=== PATIENT | female | born 1960 | race Caucasian/White ===

== ENCOUNTER 2016-09-06 19:55 | Emergency (ER) | payer MEDICARE, OTHER ==
[2016-09-06 19:56] VITALS: BMI 43.6
--- NOTE | 2016-09-06 20:35 | ED PDOC ---
HPI: General Adult Time Seen by Provider: 09/06/16 20:17 Chief Complaint (Nursing): Shortness Of Breath Chief Complaint (Provider): Sciatica pain, lower abdominal pain, water weight gain x 3 months History Per: Patient History/Exam Limitations: no limitations Onset/Duration Of Symptoms: Days Additional Complaint(s): PT state she has been having lower abdominal pain, bruising, sciatica pain and increased weight gain due to water. PT states she has COPD and has been taking Lasix which makes her more bloated. Pt initially denies SOB and was I asked a second time she said yes not no different than normal. Past Medical History Reviewed: Historical Data, Nursing Documentation, Vital Signs Vital Signs: Last Vital Signs Temp 97.5 F L 09/06/16 20:04 Pulse 77 09/06/16 20:04 Resp 18 09/06/16 20:31 BP 125/77 09/06/16 20:04 Pulse Ox 100 09/06/16 20:38 - Medical History PMH: Anxiety, Arthritis, Asthma, Back Problems (Chronic), Bipolar Disorder, Depression, HTN, Osteoporosis, Seizures Denies: CHF, COPD, Diabetes, Hepatitis, HIV, Hypercholesterolemia, Hypothyroidism, Rheumatoid Arthritis, Sexually Transmitted Disease - Surgical History Surgical History: - Family History Family History: States: No Known Family Hx - Immunization History Hx Tetanus Toxoid Vaccination: Yes Hx Influenza Vaccination: Yes Hx Pneumococcal Vaccination: Yes - Home Medications Home Medications: Ambulatory Orders Medication Instructions Recorded Singulair 10 mg PO HS 05/24/13 Depakote 500 mg PO BID 07/27/13 Citalopram Hydrobromide [Celexa] 20 mg PO DAILY 09/07/15 Rosuvastatin Calcium [Crestor] 10 mg PO HS 09/07/15 Budesonide [Pulmicort Flexhaler] 1 puff INH BID 09/12/15 LORazepam [Ativan] 0.5 mg PO BID 09/12/15 Naproxen 500 mg PO BID #30 tab 07/16/16 Naproxen 500 mg PO BID #10 ect 09/06/16 - Allergies Allergies/Adverse Reactions: Allergies Allergy/AdvReac Type Severity Reaction Status Date / Time No Known Allergies Allergy Verified 09/06/16 20:04 Review of Systems ROS Statement: Except As Marked, All Systems Reviewed And Found Negative Constitutional: Positive for: Other (Weight gain ) Respiratory: Positive for: Shortness of Breath Gastrointestinal: Positive for: Abdominal Pain. Negative for: Nausea, Vomiting , Diarrhea Genitourinary Female: Negative for: Dysuria, Frequency Musculoskeletal: Positive for: Back Pain Physical Exam - Reviewed Nursing Documentation Reviewed: Yes Vital Signs Reviewed: Yes - Physical Exam Appears: Positive for: Well, Non-toxic, No Acute Distress Head Exam: Positive for: ATRAUMATIC, NORMAL INSPECTION, NORMOCEPHALIC Skin: Positive for: Normal Color, Warm, DRY Eye Exam: Positive for: Normal appearance ENT: Positive for: Normal ENT Inspection Neck: Positive for: Normal, Painless ROM Cardiovascular/Chest: Positive for: Regular Rate, Rhythm Respiratory: Positive for: Stridor (Diffuse ). Negative for: Accessory Muscle Use Gastrointestinal/Abdominal: Positive for: Normal Exam, Bowel Sounds, Soft. Negative for: Tenderness Back: Positive for: Normal Inspection Extremity: Positive for: Normal ROM. Negative for: Swelling (No edema ) Neurologic/Psych: Positive for: Alert, Oriented - Laboratory Results Result Diagrams: 09/06/16 21:00 09/06/16 21:00 - ECG O2 Sat by Pulse Oximetry: 100 Disposition - Clinical Impression Clinical Impression: Sciatica, COPD (chronic obstructive pulmonary disease) - Patient ED Disposition Is Patient to be Admitted: No Counseled Patient/Family Regarding: Diagnosis, Need For Followup - Disposition Referrals: [facility] [Outside] Disposition: Routine/Home Disposition Time: 23:11 Condition: GOOD Additional Instructions: Please f/u with PMD. Prescriptions: Naproxen 500 mg PO BID #10 ect Instructions: Sciatica (ED)
[2016-09-06] MEDS ORDERED: Albuterol-Ipratrop 3 mg / 0.5 (3 ml) UD INH STA (20:40)
[2016-09-06] MEDS ORDERED: Albuterol-Ipratrop 3 mg / 0.5 (3 ml) UD ONE (20:53)
[2016-09-06 21:05] LABS: HEMATOCRIT 37.1 % (34.0-47.0); MEAN CELL VOLUME 88.2 fl (81.0-99.0); MEAN CORPUSCULAR HEMOGLOBIN 29.5 pg (27.0-31.0); MEAN CORPUSCULAR HGB CONC 33.4 g/dL (33.0-37.0); RED CELL DISTRIBUTION WIDTH 13.3 % (11.5-14.5); WHITE BLOOD COUNT 6.8 K/uL (4.8-10.8)
[2016-09-06] MEDS ORDERED: Naproxen 500 MG TAB PO STA (21:05)
[2016-09-06 21:12] LABS: RBC URINE 2 /hpf (0-3); URINE BILIRUBIN NEGATIVE (NEGATIVE); URINE BLOOD NEGATIVE (NEGATIVE); URINE COLOR YELLOW (YELLOW); URINE GLUCOSE (UA) NEG (Normal); URINE KETONE NEGATIVE (NEGATIVE); URINE LEUKOCYTE ESTERASE NEG Leu/uL (Negative); URINE PROTEIN NEGATIVE (NEGATIVE); URINE UROBILINOGEN 0.2-1.0 mg/dL (0.2-1.0); WBC URINE 1 /hpf (0-5)
[2016-09-06 21:20] LABS: ALB/GLOB RATIO 1.3 (1.0-2.1); ALKALINE PHOSPHATASE 128 U/L (38-126); ALT/SGPT 36 U/L (9-52); AST/SGOT 27 U/L (14-36); BILIRUBIN,TOTAL 0.4 mg/dl (0.2-1.3); BLOOD UREA NITROGEN 19 mg/dl (7-17); CALCIUM 9.1 mg/dL (8.4-10.2); CARBON DIOXIDE 31 mmol/L (22-30); CHLORIDE 100 mmol/L (98-107); GFR AFRICAN-AMERICAN > 60; GLUCOSE,RANDOM 145 mg/dL (65-105); POTASSIUM 3.5 MMOL/L (3.6-5.0); SODIUM 141 mmol/l (132-148); TOTAL PROTEIN 6.9 G/DL (6.3-8.2)
[2016-09-06 21:35] LABS: PARTIAL THROMBOPLASTIN TIME 25.4 SECONDS (23.3-32.5)
[2016-09-06] MEDS ORDERED: Naproxen 500 MG TAB PO ONE (21:51)
[2016-09-07 01:48] VITALS: BP 131/78; PULSE 79; RESP 17; TEMP 98; O2SAT 99
--- NOTE | 2016-09-07 08:58 | RAD ---
HISTORY: SOB - COPD COMPARISON: 07/29/2015. FINDINGS: LUNGS: No active pulmonary disease. PLEURA: No significant pleural effusion identified, no pneumothorax apparent. CARDIOVASCULAR: No radiographic findings to suggest acute or significant cardiovascular disease. OSSEOUS STRUCTURES: No significant abnormalities. VISUALIZED UPPER ABDOMEN: Normal. OTHER FINDINGS: None. IMPRESSION: No active disease. No significant interval change compared to the prior examination(s).
== END 2016-09-06 23:31 | disposition home or self-care (01) ==
LOC: H.ER 19:55
DX: J44.9 Chronic obstructive pulmonary disease, unspecified (principal); M54.30 Sciatica, unspecified side; F31.9 Bipolar disorder, unspecified; F41.9 Anxiety disorder, unspecified; I10 Essential (primary) hypertension; M81.0 Age-related osteoporosis without current pathological fracture

== ENCOUNTER 2016-11-13 17:52 | Emergency (ER) | payer MEDICARE, OTHER ==
[2016-11-13 17:53] VITALS: BMI 43.6
[2016-11-13 18:07] VITALS: BP 107/66; PULSE 98; RESP 18; TEMP 98.1; O2SAT 99
[2016-11-13] MEDS ORDERED: Sodium Chloride 0.9% 500 ML IV STA (18:18)
[2016-11-13] MEDS ORDERED: Albuterol-Ipratrop 3 mg / 0.5 (3 ml) UD IH STA (18:18)
[2016-11-13] MEDS ORDERED: Albuterol-Ipratrop 3 mg / 0.5 (3 ml) UD INH STA (18:18)
--- NOTE | 2016-11-13 18:25 | ED PDOC ---
HPI: SOB/CHF/COPD Time Seen by Provider: 11/13/16 18:10 Chief Complaint (Nursing): Respiratory Distress Chief Complaint (Provider): Dyspnea History Per: Patient History/Exam Limitations: no limitations Onset/Duration Of Symptoms: Days (Yesterday) Current Symptoms Are (Timing): Still Present Additional Complaint(s): Dyspena, wheezes, chest tightness. Cough, green phlegm. Walking and noted dyspnea today. No fever. No headaches, dizziness. Has leg swelling for 3 months. No pain. Has chronic low back pain, no numbness, tingles, weakness, incontinence or constipation. Past Medical History Vital Signs: Last Vital Signs Temp 98.1 F 11/13/16 18:04 Pulse 98 H 11/13/16 18:04 Resp 18 11/13/16 18:26 BP 107/66 11/13/16 18:04 Pulse Ox 99 11/13/16 18:28 - Medical History PMH: Anxiety, Arthritis, Asthma, Back Problems (Chronic), Bipolar Disorder, Depression, HTN, Osteoporosis, Seizures Denies: CHF, COPD, Diabetes, Hepatitis, HIV, Hypercholesterolemia, Hypothyroidism, Rheumatoid Arthritis, Sexually Transmitted Disease - Surgical History Surgical History: - Family History Family History: States: Unknown Family Hx - Living Arrangements Living Arrangements: With Family - Social History Alcohol: None Drugs: Denies - Immunization History Hx Tetanus Toxoid Vaccination: Yes Hx Influenza Vaccination: Yes Hx Pneumococcal Vaccination: Yes - Home Medications Home Medications: Ambulatory Orders Medication Instructions Recorded Singulair 10 mg PO HS 05/24/13 Depakote 500 mg PO BID 07/27/13 Citalopram Hydrobromide [Celexa] 20 mg PO DAILY 09/07/15 Rosuvastatin Calcium [Crestor] 10 mg PO HS 09/07/15 Budesonide [Pulmicort Flexhaler] 1 puff INH BID 09/12/15 LORazepam [Ativan] 0.5 mg PO BID 09/12/15 Naproxen 500 mg PO BID #30 tab 07/16/16 Naproxen 500 mg PO BID #10 ect 09/06/16 - Allergies Allergies/Adverse Reactions: Allergies Allergy/AdvReac Type Severity Reaction Status Date / Time No Known Allergies Allergy Verified 09/06/16 20:04 Review of Systems ROS Statement: Except As Marked, All Systems Reviewed And Found Negative Cardiovascular: Positive for: Chest Pain (tightness) Respiratory: Positive for: Cough, Shortness of Breath, Sputum, Wheezing Musculoskeletal: Positive for: Back Pain Physical Exam - Reviewed Nursing Documentation Reviewed: Yes Vital Signs Reviewed: Yes - Physical Exam Appears: Positive for: Non-toxic, No Acute Distress Head Exam: Positive for: ATRAUMATIC, NORMAL INSPECTION, NORMOCEPHALIC Skin: Positive for: Normal Color, Warm, DRY Eye Exam: Positive for: EOMI, Normal appearance, PERRL ENT: Positive for: Normal ENT Inspection Neck: Positive for: Normal, Painless ROM Cardiovascular/Chest: Positive for: Regular Rate, Rhythm Respiratory: Positive for: Decreased Breath Sounds, Wheezing (? end expiration bl) Gastrointestinal/Abdominal: Positive for: Normal Exam, Bowel Sounds, Soft. Negative for: Tenderness Back: Positive for: Normal Inspection. Negative for: L CVA Tenderness, R CVA Tenderness Extremity: Positive for: Normal ROM, Pedal Edema (1+ b/l). Negative for: Tenderness Neurologic/Psych: Positive for: Alert, Oriented - ECG ECG: Positive for: Interpreted By Me, Viewed By Me ECG Rhythm: Positive for: Normal QRS, Normal ST Segment, Nonspecific Changes ( same as old) O2 Sat by Pulse Oximetry: 99 - Progress ED Course And Treament: 1828: Stable. AAOx3. Dr. Anderson to take over care. Fu on labs/imaging. Disposition - Clinical Impression Clinical Impression: Acute dyspnea - Patient ED Disposition Is Patient to be Admitted: Transfer of Care - Disposition Disposition: Transfer of Care Disposition Time: 18:29 Condition: FAIR Patient Signed Over To: Alton Anderson
[2016-11-13 18:42] LABS: BASO # 0.1 K/uL (0.0-0.2); BASO % 1.1 % (0.0-2.0); EOS # 0.1 K/uL (0.0-0.7); EOS % 1.6 % (0.0-4.0); HEMOGLOBIN 13.1 g/dL (12.0-16.0); LYMPH # 2.1 K/uL (1.0-4.3); LYMPH % 32.3 % (20.0-40.0); MEAN CELL VOLUME 85.9 fl (81.0-99.0); MEAN CORPUSCULAR HEMOGLOBIN 28.3 pg (27.0-31.0); MEAN CORPUSCULAR HGB CONC 32.9 g/dL (33.0-37.0); MEAN PLATELET VOLUME 9.3 fl (7.2-11.7); MONO # 0.4 K/uL (0.0-0.8); MONO % 6.2 % (0.0-10.0); NEUT # 3.8 K/uL (1.8-7.0); NEUT % 58.8 % (50.0-75.0); NRBC % 0.1 % (0.0-0.0); RBC 4.62 Mil/uL (3.80-5.20); RED CELL DISTRIBUTION WIDTH 13.4 % (11.5-14.5); WHITE BLOOD COUNT 6.4 K/uL (4.8-10.8)
[2016-11-13 18:49] LABS: ABG ALLEN TEST YES; ARTERIAL BLOOD GAS HCO3 27.2 mmol/L (21-28); ARTERIAL BLOOD GAS O2 SAT 99.4 % (95-98); ARTERIAL BLOOD GAS PCO2 43 mm/Hg (35-45); ARTERIAL BLOOD GAS PH 7.42 (7.35-7.45); ARTERIAL BLOOD GAS PO2 82 mm/Hg (80-100); ARTERIAL BLOOD GAS TCO2 29.2 mmol/L (22-28)
--- NOTE | 2016-11-13 18:55 | RAD ---
HISTORY: dyspnea COMPARISON: 09/06/2016 FINDINGS: LUNGS: The lungs are well inflated and clear. PLEURA: No significant pleural effusion identified, no pneumothorax apparent. CARDIOVASCULAR: Normal. OSSEOUS STRUCTURES: No significant abnormalities. VISUALIZED UPPER ABDOMEN: Normal. OTHER FINDINGS: None. IMPRESSION: No active pulmonary disease.
[2016-11-13 19:01] LABS: ALB/GLOB RATIO 1.2 (1.0-2.1); ALBUMIN 4.2 g/dL (3.5-5.0); ALT/SGPT 55 U/L (9-52); AST/SGOT 33 U/L (14-36); BLOOD UREA NITROGEN 12 mg/dl (7-17); CALCIUM 9.5 mg/dL (8.4-10.2); GFR AFRICAN-AMERICAN > 60; GFR NON-AFRICAN AMERICAN > 60
[2016-11-13] MEDS ORDERED: Albuterol-Ipratrop 3 mg / 0.5 (3 ml) UD ONE (19:09)
--- NOTE | 2016-11-13 19:10 | ED PDOC ---
- Laboratory Results Result Diagrams: 11/13/16 18:30 11/13/16 18:30 - ECG O2 Sat by Pulse Oximetry: 99 Medical Decision Making Medical Decision Makin:00 Pt signed out to me by Dr. Dolores MD. Pending labs, re-evaluation, and disposition. 20:21 Labs reviewed, shows no indication of clinically significant abnormalities. Pt was re-evaluated and reports feeling improved after Duoneb treatment. Pt requires no further treatment in the ED and will be discharged routinely with albuterol and medrol. Advised to return to the ED if symptoms persist or worsen. Clincal Impression- Asthma Exacerbation Documented by Mae Bernal, acting as a scribe for Alton Anderson MD. All medical record entries made by the Scribe were at my direction and personally dictated by me. I have reviewed the chart and agree that the record accurately reflects my personal performance of the history, physical exam, medical decision making, and the department course for this patient. I have also personally directed, reviewed, and agree with the discharge instructions and disposition. Disposition - Clinical Impression Clinical Impression: Asthma exacerbation - POA Present On Arrival: None - Disposition Disposition: Routine/Home Disposition Time: 20:21 Condition: STABLE Prescriptions: Albuterol HFA [Ventolin HFA 90 mcg/actuation (8 g)] 1 - 2 puff IH Q6 PRN #1 inhaler PRN Reason: Shortness Of Breath Methylprednisolone [Medrol Dosepak] 4 mg PO ASDIR #1 pkg Instructions: Asthma (ED)
[2016-11-13 19:17] LABS: B-TYPE NATRIURETIC PEPTIDE 40.2 pg/ml (0-900)
--- NOTE | 2016-11-14 12:57 | CARD ---
APPROVED REPORT EKG Measurement Heart [id number] <Conclusion> Sinus tachycardia Possible Left atrial enlargement Borderline ECG
== END 2016-11-13 20:36 | disposition home or self-care (01) ==
LOC: H.ER 17:52
DX: J45.901 Unspecified asthma with (acute) exacerbation (principal); F31.9 Bipolar disorder, unspecified; F41.9 Anxiety disorder, unspecified; I10 Essential (primary) hypertension
CPT/HCPCS: 36600; 71010; 80053; 82803; 83880; 84484; 85025; 93005; 94640; 96374; 99283; J2930; J7040

== ENCOUNTER 2017-08-05 15:06 | Emergency (ER) | payer MEDICARE, OTHER ==
[2017-08-05 15:06] VITALS: BMI 47.5
[2017-08-05 15:18] VITALS: BP 145/90; PULSE 94; RESP 18; TEMP 97.5; O2SAT 99
--- NOTE | 2017-08-05 16:07 | ED PDOC ---
HPI: Chest Pain Time Seen by Provider: 08/05/17 15:15 Chief Complaint (Nursing): Chest Pain Chief Complaint (Provider): Chest Pain History Per: Patient History/Exam Limitations: no limitations Onset/Duration Of Symptoms: Intermittent Episodes (x2 days) Current Symptoms Are (Timing): Still Present Additional Complaint(s): 56 year old female with medical history of anxiety, chronic back pain, asthma and HTN, presents to the emergency department with a complaint of chest pain, back pain and abdominal "hardening" ongoing intermittently for 2 days. She reports associated chills, bilateral eye swelling and dizziness. She denied any nausea, vomiting or diarrhea. Patient has also been taking water pills with no alleviation in pain. PMD: Cleveland Cheema MD Past Medical History Reviewed: Historical Data, Nursing Documentation, Vital Signs Vital Signs: Last Vital Signs Temp 97.5 F L 08/05/17 15:15 Pulse 94 H 08/05/17 15:15 Resp 18 08/05/17 15:15 BP 145/90 08/05/17 15:15 Pulse Ox 99 08/05/17 23:58 - Medical History PMH: Anxiety, Arthritis, Asthma, Back Problems (Chronic), Bipolar Disorder, Depression, HTN, Osteoporosis, Peripheral Edema, Seizures Denies: CHF, Diabetes, Hepatitis, HIV, Hypercholesterolemia, Hypothyroidism, Rheumatoid Arthritis - Surgical History Surgical History: - Family History Family History: States: Unknown Family Hx - Social History Current smoker - smoking cessation education provided: No Ex-Smoker (has not smoked in the last 12 months): No Alcohol: None Drugs: Denies - Immunization History Hx Tetanus Toxoid Vaccination: Yes Hx Influenza Vaccination: Yes Hx Pneumococcal Vaccination: Yes - Home Medications Home Medications: Ambulatory Orders Medication Instructions Recorded Singulair 10 mg PO HS 05/24/13 Depakote 500 mg PO BID 07/27/13 Citalopram Hydrobromide [Celexa] 20 mg PO DAILY 09/07/15 Rosuvastatin Calcium [Crestor] 10 mg PO DAILY 09/07/15 Budesonide [Pulmicort Flexhaler] 1 puff INH BID PRN 09/12/15 Naproxen 500 mg PO BID #30 tab 07/16/16 Albuterol HFA [Ventolin HFA 90 1 - 2 puff IH Q6 PRN #1 inhaler 11/13/16 mcg/actuation (8 g)] Alprazolam [Xanax] 0.5 mg PO TID 02/12/17 Furosemide 40 mg PO DAILY 02/12/17 Multivitamin [Daily Smita] 1 tab PO DAILY 02/12/17 Spironolactone 50 mg PO DAILY 02/12/17 - Allergies Allergies/Adverse Reactions: Allergies Allergy/AdvReac Type Severity Reaction Status Date / Time No Known Allergies Allergy Verified 09/06/16 20:04 Review of Systems ROS Statement: Except As Marked, All Systems Reviewed And Found Negative Constitutional: Positive for: Chills Eyes: Positive for: Other (bilateral swelling) Cardiovascular: Positive for: Chest Pain Gastrointestinal: Positive for: Abdominal Pain (hardness). Negative for: Nausea , Vomiting, Diarrhea Musculoskeletal: Positive for: Back Pain Neurological: Positive for: Dizziness Physical Exam - Reviewed Nursing Documentation Reviewed: Yes Vital Signs Reviewed: Yes - Physical Exam Appears: Positive for: Uncomfortable, In Acute Distress (mild) Head Exam: Positive for: ATRAUMATIC, NORMAL INSPECTION, NORMOCEPHALIC Skin: Positive for: Normal Color Eye Exam: Positive for: EOMI, PERRL, Periorbital swelling ENT: Positive for: Normal ENT Inspection. Negative for: Pharyngeal Erythema Neck: Positive for: Normal Cardiovascular/Chest: Positive for: Regular Rate, Rhythm, Chest Non Tender Respiratory: Positive for: Normal Breath Sounds. Negative for: Wheezing, Respiratory Distress Gastrointestinal/Abdominal: Positive for: Normal Exam, Soft. Negative for: Tenderness Extremity: Positive for: Normal ROM Neurologic/Psych: Positive for: Alert (x3), Oriented - Laboratory Results Result Diagrams: 08/05/17 16:15 08/05/17 16:15 - ECG O2 Sat by Pulse Oximetry: 99 (RA) Pulse Ox Interpretation: Normal Medical Decision Making Medical Decision Making: Initial Impression: Chest pain; Back pain Initial Plan: * CMP * Troponin I * CBC * PTT * PT * CXR Time: 1601 --EKG: NSR at [address] elevation. Time: 16:53 Chest x-ray FINDINGS: LUNGS: No active pulmonary disease. PLEURA: No significant pleural effusion identified. No pneumothorax apparent. CARDIOVASCULAR: No radiographic findings to suggest acute or significant cardiovascular disease. OSSEOUS STRUCTURES: No significant abnormalities. VISUALIZED UPPER ABDOMEN: Normal. OTHER FINDINGS: None. IMPRESSION: No active disease. No significant interval change compared to the prior examination(s). Time: 21:12 Abdomen/Pelvis CT FINDINGS: Lung bases: There is minimal bibasilar atelectatic change or scarring. ABDOMEN: Liver: There is diffuse fatty liver. There is hepatomegaly. Gallbladder and bile ducts: Unremarkable. No calcified stones. No ductal dilation. Pancreas: Unremarkable. No ductal dilation. Spleen: Unremarkable. No splenomegaly. Adrenals: Unremarkable. No mass. Kidneys and ureters: Unremarkable. No obstructing stones. No hydronephrosis. Stomach and bowel: Unremarkable. No obstruction. No mucosal thickening. Appendix: The appendix is unremarkable and seen best on axial image 79 of series 2. PELVIS: Bladder: Unremarkable. No stones. Reproductive: Unremarkable as visualized. ABDOMEN and PELVIS: Intraperitoneal space: Unremarkable. No free air. No significant fluid collection. Bones/joints: There are mild degenerative changes of the spine. No acute fracture. No dislocation. Soft tissues: Unremarkable. Vasculature: There are mild atherosclerotic aortic and iliac artery calcifications. There are calcified phleboliths in the pelvis. No abdominal aortic aneurysm. Lymph nodes: Unremarkable. No enlarged lymph nodes. IMPRESSION: No acute findings -Troponin number 2: negative pt feels better, states the back pain is actually chronic. pt resting comfortably throughout ER stay.tolerated po. Scribe Attestation: Documented by Mikayla Reyes and Harpreet Lux, acting as a scribe for Ajay Fuller MD. Provider Scribe Attestation: All medical record entries made by the Scribe were at my direction and personally dictated by me. I have reviewed the chart and agree that the record accurately reflects my personal performance of the history, physical exam, medical decision making, and the department course for this patient. I have also personally directed, reviewed, and agree with the discharge instructions and disposition. Disposition - Clinical Impression Clinical Impression: Atypical chest pain - Patient ED Disposition Is Patient to be Admitted: No Counseled Patient/Family Regarding: Studies Performed, Diagnosis, Need For Followup - Disposition Referrals: [facility] [Outside] [facility] [Outside] Disposition: Routine/Home Disposition Time: 19:00 Condition: IMPROVED Additional Instructions: follow up with your primary doctor in 1-2 days return to the ED with any worsening or concerning symptoms Instructions: Chest Pain That Is Not Caused by the Heart (DC) Forms: [employer] (Amharic)
[2017-08-05 16:53] LABS: BASO # 0.1 K/uL (0.0-0.2); BASO % 0.7 % (0.0-2.0); EOS # 0.1 K/uL (0.0-0.7); EOS % 1.8 % (0.0-4.0); HEMOGLOBIN 13.9 g/dL (12.0-16.0); LYMPH # 2.4 K/uL (1.0-4.3); LYMPH % 31.9 % (20.0-40.0); MEAN CELL VOLUME 86.6 fl (81.0-99.0); MEAN CORPUSCULAR HEMOGLOBIN 29.6 pg (27.0-31.0); MEAN CORPUSCULAR HGB CONC 34.1 g/dL (33.0-37.0); MEAN PLATELET VOLUME 8.9 fl (7.2-11.7); MONO # 0.5 K/uL (0.0-0.8); MONO % 6.7 % (0.0-10.0); NEUT # 4.5 K/uL (1.8-7.0); NEUT % 58.9 % (50.0-75.0); RBC 4.71 Mil/uL (3.80-5.20); RED CELL DISTRIBUTION WIDTH 13.5 % (11.5-14.5); WHITE BLOOD COUNT 7.7 K/uL (4.8-10.8)
[2017-08-05 17:00] LABS: PARTIAL THROMBOPLASTIN TIME 31.8 Seconds (25.6-37.1); PROTHROMBIN TIME 10.5 Seconds (9.8-13.1)
--- NOTE | 2017-08-05 17:02 | RAD ---
HISTORY: chest pain COMPARISON: 11/13/2016 TECHNIQUE: Chest PA and lateral FINDINGS: LUNGS: No active pulmonary disease. PLEURA: No significant pleural effusion identified. No pneumothorax apparent. CARDIOVASCULAR: No radiographic findings to suggest acute or significant cardiovascular disease. OSSEOUS STRUCTURES: No significant abnormalities. VISUALIZED UPPER ABDOMEN: Normal. OTHER FINDINGS: None. IMPRESSION: No active disease. No significant interval change compared to the prior examination(s).
[2017-08-05 17:04] LABS: ALBUMIN 3.9 g/dL (3.5-5.0); ALT/SGPT 76 U/L (9-52); AST/SGOT 48 U/L (14-36); BLOOD UREA NITROGEN 18 mg/dl (7-17); CALCIUM 9.8 mg/dL (8.4-10.2); GFR AFRICAN-AMERICAN > 60; GFR NON-AFRICAN AMERICAN > 60
[2017-08-05] MEDS ORDERED: Oxycodone/Acetaminophen 5/325 mg Tab PO ONE (20:26)
--- NOTE | 2017-08-06 10:09 | CT ---
PROCEDURE: CT Abdomen and Pelvis without intravenous contrast HISTORY: abd pain COMPARISON: Abdomen ultrasound examination 08/30/2015. TECHNIQUE: Helical CT of the abdomen and pelvis was performed without oral or intravenous contrast as per referring physician request. Contrast Dose: None Radiation dose: Total exam DLP = 1133.20 mGy-cm. This CT exam was performed using one or more of the following dose reduction techniques: Automated exposure control, adjustment of the mA and/or kV according to patient size, and/or use of iterative reconstruction technique. FINDINGS: LOWER THORAX: Punctate calcified granuloma is seen at the right lower lobe with bilateral lung bases otherwise unremarkable appearing. LIVER: Unremarkable. No gross lesion or ductal dilatation. GALLBLADDER AND BILE DUCTS: Unremarkable. PANCREAS: Unremarkable. No gross lesion or ductal dilatation. SPLEEN: Unremarkable. ADRENALS: Unremarkable. No mass. KIDNEYS AND URETERS: No obstructive uropathy, radiodense urolithiasis or significant perinephric reaction appreciated bilaterally. VASCULATURE: Unremarkable. No aortic aneurysm. BOWEL: Unremarkable. No obstruction. No gross mural thickening. APPENDIX: Unremarkable. Normal appendix. PERITONEUM: Unremarkable. No free fluid. No free air. LYMPH NODES: Unremarkable. No enlarged lymph nodes. BLADDER: Unremarkable. REPRODUCTIVE: Unremarkable. BONES: No acute fracture. OTHER FINDINGS: None. IMPRESSION: Nonacute abdomen pelvis CT examination as discussed above. No radiodense urolithiasis, obstructive uropathy or perinephric reaction bilaterally in particular. Concordant preliminary report from [facility], 08/05/2017.
== END 2017-08-05 22:09 | disposition home or self-care (01) ==
LOC: H.ER 15:06
DX: R07.89 Other chest pain (principal); F31.9 Bipolar disorder, unspecified; F41.9 Anxiety disorder, unspecified; I10 Essential (primary) hypertension
CPT/HCPCS: 71046; 74176; 80053; 81025; 84484; 85025; 85610; 85730; 96374; 99283; J1885

== ENCOUNTER 2017-12-11 07:25 | Observation (INO) | payer MEDICARE, OTHER ==
[2017-12-05 14:40] VITALS: BMI 50.3
[2017-12-11] MEDS ORDERED: SULFANILAMIDE (AVC) VAG CREAM VG ONE ×3 (07:40→12:25)
[2017-12-11] MEDS ORDERED: Bupivacaine HCl 0.5% PF (30 ml) Inj ONE (07:40)
[2017-12-11] MEDS ORDERED: Methylene Blue 10 mg/mL(10ml) IV ONE (07:40)
[2017-12-11 08:25] LABS: BASO # 0.1 K/uL (0.0-0.2); BASO % 1.1 % (0.0-2.0); EOS # 0.1 K/uL (0.0-0.7); EOS % 1.9 % (0.0-4.0); HEMOGLOBIN 13.4 g/dL (12.0-16.0); LYMPH # 2.3 K/uL (1.0-4.3); LYMPH % 38.3 % (20.0-40.0); MEAN CELL VOLUME 85.9 fl (81.0-99.0); MEAN CORPUSCULAR HEMOGLOBIN 29.5 pg (27.0-31.0); MEAN CORPUSCULAR HGB CONC 34.3 g/dL (33.0-37.0); MEAN PLATELET VOLUME 9.1 fl (7.2-11.7); MONO # 0.5 K/uL (0.0-0.8); MONO % 8.8 % (0.0-10.0); NEUT % 49.9 % (50.0-75.0); NRBC % 0.2 % (0.0-0.0); RBC 4.56 Mil/uL (3.80-5.20); RED CELL DISTRIBUTION WIDTH 13.6 % (11.5-14.5)
[2017-12-11] MEDS ORDERED: Lactated Ringer's 1,000 ML IV ONE ×2 (08:25→09:00)
[2017-12-11] MEDS ORDERED: Succinylcholine 200 mg/10 ml Inj IV ONE (09:20)
[2017-12-11] MEDS ORDERED: Albuterol HFA 90 mcg/actuation (8 g) ONE (09:20)
[2017-12-11] MEDS ORDERED: ePHEDrine 50 mg/ml Inj ONE (09:20)
[2017-12-11] MEDS ORDERED: Propofol 10 mg/ml Inj (20 ML) ONE (09:20)
[2017-12-11] MEDS ORDERED: Midazolam 2 MG/2 ML VIAL ONE (09:20)
[2017-12-11] MEDS ORDERED: Neostigmine 1:1000 (1 mg/ml) Inj ONE (09:20)
[2017-12-11] MEDS ORDERED: Rocuronium 10 mg/ml (5 ml) ONE ×2 (09:20→13:25)
[2017-12-11] MEDS ORDERED: Sevoflurane - Inhalation Anesthetic Liq (250 ml) ONE (09:20)
[2017-12-11] MEDS ORDERED: HEMOSTATIC MATRIX 10 ML DIS.NEEDLE TOP ONE ×2 (12:00→12:15)
[2017-12-11] MEDS ORDERED: Dexamethasone 4 mg/1 ml ONE (13:25)
[2017-12-11] MEDS ORDERED: DiphenhydrAMINE 50 mg/ml Inj IVP PRN (13:35)
[2017-12-11] MEDS ORDERED: Naloxone 0.4 mg/ml Inj (Adult) IVP PRN (13:38)
[2017-12-11] MEDS ORDERED: HYDROmorphone 1 mg/ml ISec ONE ×5 (13:47→14:21)
[2017-12-11] MEDS: HYDROmorphone 0.5 mg/0.5 ml ISec IVP PRN ×3 (13:47→14:18)
[2017-12-11 14:17] LABS: HEMOGLOBIN 12.5 g/dL (12.0-16.0); MEAN CELL VOLUME 87.7 fl (81.0-99.0); MEAN CORPUSCULAR HEMOGLOBIN 28.8 pg (27.0-31.0); MEAN CORPUSCULAR HGB CONC 32.9 g/dL (33.0-37.0); RBC 4.34 Mil/uL (3.80-5.20); RED CELL DISTRIBUTION WIDTH 13.5 % (11.5-14.5); WHITE BLOOD COUNT 12.6 K/uL (4.8-10.8)
[2017-12-11] MEDS: Lactated Ringer's 1,000 ML IV SCH ×3 (15:39→21:45)
[2017-12-11] MEDS ORDERED: BUDESONIDE INH PRN (17:40)
[2017-12-11] MEDS ORDERED: Albuterol HFA 90 mcg/actuation (8 g) IH PRN (17:40)
[2017-12-11] MEDS: cefOXitin IV 1 gm in Dextrose 1 GM/50 ML BAG IVPB SCH (18:02)
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
[2017-12-11 18:53] LABS: HEMOGLOBIN 12.5 g/dL (12.0-16.0); MEAN CELL VOLUME 86.8 fl (81.0-99.0); MEAN CORPUSCULAR HGB CONC 33.4 g/dL (33.0-37.0); RBC 4.3 Mil/uL (3.80-5.20); RED CELL DISTRIBUTION WIDTH 13.6 % (11.5-14.5); WHITE BLOOD COUNT 11.2 K/uL (4.8-10.8)
--- NOTE | 2017-12-11 19:24 | CP.PCM.PCO ---
Physician Communication Note - Physician Communication Note Physician Communication Note: PATIENT PCP DR. MACIEL. CONSULT TO BE CHANGED TO HIS SERVICE.
[2017-12-11 19:28] LABS: BLOOD UREA NITROGEN 19 mg/dl (7-17); GFR NON-AFRICAN AMERICAN > 60
[2017-12-11] MEDS ORDERED: Sodium Chloride 0.9% 50 ML IV ONE (20:07)
[2017-12-11] MEDS ORDERED: Iodixanol 320 MG/ML 100 ML BOTTLE IV ONE (20:07)
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
[2017-12-12] MEDS ORDERED: Mometasone 110 mcg/puff-30 puff Inh INH PRN (00:07)
[2017-12-12] MEDS: cefOXitin IV 1 gm in Dextrose 1 GM/50 ML BAG IVPB SCH ×2 (01:22→09:01)
[2017-12-12] MEDS: Lactated Ringer's 1,000 ML IV SCH ×2 (05:45→15:58)
[2017-12-12 06:36] LABS: BASO % 0.2 % (0.0-2.0); HEMOGLOBIN 11.4 g/dL (12.0-16.0); LYMPH # 1.4 K/uL (1.0-4.3); MEAN CELL VOLUME 87.9 fl (81.0-99.0); MEAN CORPUSCULAR HEMOGLOBIN 29.3 pg (27.0-31.0); MEAN CORPUSCULAR HGB CONC 33.3 g/dL (33.0-37.0); MEAN PLATELET VOLUME 9.3 fl (7.2-11.7); MONO # 0.8 K/uL (0.0-0.8); MONO % 6.7 % (0.0-10.0); NEUT # 10.4 K/uL (1.8-7.0); NEUT % 82.1 % (50.0-75.0); RBC 3.88 Mil/uL (3.80-5.20); RED CELL DISTRIBUTION WIDTH 13.8 % (11.5-14.5); WHITE BLOOD COUNT 12.6 K/uL (4.8-10.8)
--- NOTE | 2017-12-12 07:41 | CARD ---
APPROVED REPORT Date of service: 12/11/2017 <Conclusion> Sinus tachycardia Possible Left atrial enlargement Nonspecific T wave abnormality Abnormal ECG
[2017-12-12] MEDS ORDERED: DEPAKOTE 500 MG PO SCH (09:00)
[2017-12-12] MEDS: Divalproex 500 mg DR(BID formulation) PO SCH ×2 (09:01→16:57)
--- NOTE | 2017-12-12 09:13 | US ---
Date of service: 12/12/2017 PROCEDURE: Bilateral lower extremity venous duplex Doppler. HISTORY: Tender b/l ext. COMPARISON: None available. TECHNIQUE: Bilateral common femoral, superficial femoral, popliteal and posterior tibial veins were evaluated. Flow was assessed with color Doppler, compressibility, assessment of phasic flow and augmentation response. FINDINGS: COMMON FEMORAL VEIN: Right CFV: Unremarkable. Left CFV: Unremarkable. SUPERFICIAL FEMORAL VEIN: Right SFV: Unremarkable. Left SFV: Unremarkable. POPLITEAL VEIN: Right Popliteal: Unremarkable. Left Popliteal: Unremarkable. POSTERIOR TIBIAL VEIN: Right PTV: Unremarkable. Left PTV: Unremarkable. OTHER FINDINGS: None. IMPRESSION: No evidence of deep venous thrombosis.
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
--- NOTE | 2017-12-12 10:43 | CP.PCM.PN ---
<Stephanie Castano - Last Filed: 12/12/17 12:41> Subjective - Date & Time of Evaluation Date of Evaluation: 12/12/17 Time of Evaluation: 07:10 - Subjective Subjective: Overnight pt was found to be anxious, did not taking any of her home anxiety medications. [place] better after 1x dose of ativan. Pt is seen and examined this AM. States that she is feeling fine. Denies chest pain, dyspnea, n/v/d/c. Endorsing mild abdominal pain/fullness. Pt is ambulating to chair and in the room. Objective - Vital Signs/Intake and Output Vital Signs (last 24 hours): Temp Pulse Resp BP Pulse Ox 98.4 F 72 20 102/69 99 12/12/17 08:17 12/12/17 08:17 12/12/17 08:17 12/12/17 09:00 12/12/17 08:17 - Medications Medications: Current Medications Albuterol (Ventolin Hfa 90 Mcg/Actuation (8 G)) 2 puff IH Q6 PRN PRN Reason: Shortness of Breath Alprazolam (Xanax) 0.5 mg PO TID [facility] Last Admin: 12/12/17 09:07 Dose: 0.5 mg Citalopram Hydrobromide (Celexa) 20 mg PO DAILY [facility] Last Admin: 12/12/17 09:01 Dose: 20 mg Divalproex Sodium (Depakote Dr(*Bid*)) 500 mg PO BID [facility] Last Admin: 12/12/17 09:01 Dose: 500 mg Emollient Ointment (Vaseline Oint) 1 pkt TOP PRN PRN PRN Reason: Dry skin Furosemide (Lasix) 40 mg PO DAILY [facility] Last Admin: 12/12/17 09:00 Dose: 40 mg Hydromorphone HCl (Dilaudid 0.2 Mg/Ml Dog Obedience Instructor) 0 mg IV PRN PRN; Protocol PRN Reason: Pain, moderate (4-7) Last Admin: 12/11/17 15:05 Dose: 0 mg Lactated Ringer's (Lactated Ringer's) 1,000 mls @ 125 mls/hr IV .Q8H [facility] Last Admin: 12/12/17 05:45 Dose: Not Given Mometasone Furoate (Asmanex Twisthaler 110 Mcg) 1 puff INH DAILY PRN PRN Reason: Shortness of Breath Montelukast Sodium (Singulair) 10 mg PO HS [facility] Naloxone HCl (Narcan) 0.1 mg IVP Q2M PRN PRN Reason: Opiate reversal Spironolactone (Aldactone) 50 mg PO DAILY [facility] Last Admin: 12/12/17 09:00 Dose: 50 mg Zolpidem Tartrate (Ambien) 5 mg PO HS PRN PRN Reason: Sleep - Labs Labs: 12/12/17 05:50 12/11/17 18:58 - Constitutional Appears: No Acute Distress, Other (obese) - Head Exam Head Exam: ATRAUMATIC - Eye Exam Eye Exam: EOMI - ENT Exam ENT Exam: Mucous Membranes Moist - Respiratory Exam Respiratory Exam: Clear to Ausculation Bilateral, Wheezes (expiratory wheezing b /l ) - Cardiovascular Exam Cardiovascular Exam: REGULAR RHYTHM, +S1, +S2 - GI/Abdominal Exam GI & Abdominal Exam: Soft, Tenderness, Normal Bowel Sounds - Extremities Exam Extremities Exam: absent: Calf Tenderness, Pedal Edema - Neurological Exam Neurological Exam: Alert, Awake Assessment and Plan - Assessment and Plan (Free Text) Assessment: Assessment/Plan: 57 YO F with PMH of anxiety, asthma, HTN, Uterine fibroids, s/p Robotic hysterectomy with Left oopherectomy and b/l salphingectomy POD1; medicine was consulted for post-op tachycardia. Tachycardia -resolved -likely 2/2 to pain and anxiety -restarted her home meds -r/o PE and ACS; unlikely -EKG: Sinus tachycardia, no acute ischemic changes noted -CTA neg -b/l lower ext u/s neg -Pharmacologic stress test 09/2017: WNL -Post op CBC stable -C/W pain control with LEADERSHIP RECRUITER pump -trop x 1 neg -Cardio consulted; cleared per cardiology for discharge Anxiety -Xanex .5 mg TID PRN -restart psychotropic meds -ativan 0.5 prn if persistent DVT prophylaxis -SCD for now, will speak to surgical team regarding Lovenox on POD 1 Dispo Discussed case with cardiology and PMD, pt is cleared for d/c home. <Rios Evans - Last Filed: 12/16/17 06:43> Objective - Vital Signs/Intake and Output Vital Signs (last 24 hours): Temp Pulse Resp BP Pulse Ox 98.1 F 84 19 111/73 96 12/13/17 09:00 12/13/17 09:00 12/13/17 09:00 12/13/17 09:00 12/13/17 09:00 - Labs Labs: 12/12/17 05:50 12/13/17 05:35 Attending/Attestation - Attestation I have personally seen and examined this patient.: Yes I have fully participated in the care of the patient.: Yes I have reviewed all pertinent clinical information, including history, physical exam and plan: Yes
--- NOTE | 2017-12-12 10:50 | CT ---
Date of service: 12/11/2017 PROCEDURE: CT Chest with contrast (Pulmonary Angiogram) HISTORY: TACHY, HYPOXIA COMPARISON: None available. TECHNIQUE: Axial computed tomography images were obtained of the chest in the pulmonary arterial phase of enhancement. Coronal and sagittal reformatted images were created and reviewed. Maximum intensity projection (MIP) reconstructed images in the following planes: Axial only. Intravenous contrast dose: 70 cc Visipaque 320. Mean Hounsfield unit values in the main pulmonary artery: 164.04. Radiation dose: Total exam DLP = 356.28 mGy-cm. This CT exam was performed using one or more of the following dose reduction techniques: Automated exposure control, adjustment of the mA and/or kV according to patient size, and/or use of iterative reconstruction technique. FINDINGS: PULMONARY ARTERIES: Unremarkable. No pulmonary embolism. Dilated main pulmonary artery 3.7 cm consistent with pulmonary arterial hypertension. AORTA: No acute findings. No thoracic aortic aneurysm. LUNGS: Linear scarring at the lung bases. . No nodule, mass or pulmonary consolidation. PLEURAL SPACES: Unremarkable. No effusion or pneumothorax. HEART: Unremarkable. No cardiomegaly. No significant pericardial effusion. LYMPH NODES: No lymphadenopathy. BONES, CHEST WALL: Unremarkable. No fracture or destructive lesion OTHER FINDINGS: Unremarkable. IMPRESSION: Unremarkable CT pulmonary angiogram. No pulmonary embolus.Limitations of the current examination: Qualitative and quantitative assessment limits sensitivity of this study. Subsegmental pulmonary emboli are not seen, the quality of the study at this level and beyond is nondiagnostic. Additional benign and/or incidental findings described above. Concordant results (preliminary interpretation) provided by [facility]. Procedure Completed: 21:41. Preliminary ([facility]) Report: Dictated and Authenticated: 22:14. Final Interpretation: 10:48. December 12, 2017.
[2017-12-12] MEDS: Petrolatum UD PAK TOP PRN (12:51)
[2017-12-12] MEDS: Oxycodone/Acetaminophen 5/325 mg Tab PO PRN ×2 (13:06→21:47)
[2017-12-12] MEDS ORDERED: SINGULAIR 10 MG PO SCH (22:00)
[2017-12-13 00:35] VITALS: RESP 19
[2017-12-13] MEDS: Oxycodone/Acetaminophen 5/325 mg Tab PO PRN (06:18)
[2017-12-13 06:52] LABS: BLOOD UREA NITROGEN 12 mg/dl (7-17); GFR NON-AFRICAN AMERICAN > 60
[2017-12-13 06:53] LABS: CALCIUM 9.1 mg/dL (8.4-10.2)
[2017-12-13 07:42] VITALS: BP 111/73; PULSE 84; TEMP 98.1; O2SAT 96
[2017-12-13] MEDS: Petrolatum UD PAK TOP PRN (08:31)
[2017-12-13] MEDS: Divalproex 500 mg DR(BID formulation) PO SCH (08:31)
--- NOTE | 2017-12-13 09:49 | CP.PCM.PN ---
<Stephanie Castano - Last Filed: 12/13/17 13:42> Subjective - Date & Time of Evaluation Date of Evaluation: 12/13/17 Time of Evaluation: 07:15 - Subjective Subjective: No acute overnight events. Pt states that she is feeling well this AM, was able to sleep last night. No BM this AM, pt ambulatory, good PO intake. Endorsing abdominal pain but well controlled with PO meds. Remains without fever. Objective - Vital Signs/Intake and Output Vital Signs (last 24 hours): Temp Pulse Resp BP Pulse Ox 98.1 F 84 19 111/73 96 12/13/17 07:42 12/13/17 07:42 12/13/17 07:42 12/13/17 07:42 12/13/17 07:42 - Medications Medications: Current Medications Albuterol (Ventolin Hfa 90 Mcg/Actuation (8 G)) 2 puff IH Q6 PRN PRN Reason: Shortness of Breath Alprazolam (Xanax) 0.5 mg PO TID [facility] Last Admin: 12/13/17 08:29 Dose: 0.5 mg Citalopram Hydrobromide (Celexa) 20 mg PO DAILY [facility] Last Admin: 12/13/17 08:31 Dose: 20 mg Divalproex Sodium (Depakote Dr(*Bid*)) 500 mg PO BID [facility] Last Admin: 12/13/17 08:31 Dose: 500 mg Docusate Sodium (Colace) 100 mg PO DAILY [facility] Last Admin: 12/13/17 08:29 Dose: 100 mg Emollient Ointment (Vaseline Oint) 1 pkt TOP PRN PRN PRN Reason: Dry skin Last Admin: 12/13/17 08:31 Dose: 1 pkt Lactated Ringer's (Lactated Ringer's) 1,000 mls @ 125 mls/hr IV .Q8H [facility] Last Admin: 12/12/17 15:58 Dose: Not Given Mometasone Furoate (Asmanex Twisthaler 110 Mcg) 1 puff INH DAILY PRN PRN Reason: Shortness of Breath Montelukast Sodium (Singulair) 10 mg PO HS [facility] Last Admin: 12/12/17 21:18 Dose: 10 mg Naloxone HCl (Narcan) 0.1 mg IVP Q2M PRN PRN Reason: Opiate reversal Oxycodone/Acetaminophen (Percocet 5/325 Mg Tab) 1 tab PO Q6 PRN PRN Reason: Pain, Mild (1-3) Stop: 12/15/17 11:07 Last Admin: 12/13/17 06:18 Dose: 1 tab Sennosides (Senokot Tab) 8.6 mg PO HS [facility] Last Admin: 12/12/17 21:18 Dose: 8.6 mg Spironolactone (Aldactone) 50 mg PO DAILY [facility] Last Admin: 12/13/17 08:31 Dose: 50 mg Zolpidem Tartrate (Ambien) 5 mg PO HS PRN PRN Reason: Sleep Last Admin: 12/12/17 22:15 Dose: 5 mg - Labs Labs: 12/12/17 05:50 12/13/17 05:35 - Constitutional Appears: No Acute Distress - Head Exam Head Exam: ATRAUMATIC - ENT Exam ENT Exam: Mucous Membranes Moist - Respiratory Exam Respiratory Exam: Wheezes (b/l mild), NORMAL BREATHING PATTERN - Cardiovascular Exam Cardiovascular Exam: REGULAR RHYTHM, +S1, +S2 - GI/Abdominal Exam GI & Abdominal Exam: Soft, Normal Bowel Sounds. absent: Tenderness - Neurological Exam Neurological Exam: Alert, Awake - Psychiatric Exam Psychiatric exam: Normal Mood Assessment and Plan - Assessment and Plan (Free Text) Assessment: Assessment/Plan: 57 YO F with PMH of anxiety, asthma, HTN, Uterine fibroids, s/p Robotic hysterectomy with Left oopherectomy and b/l salphingectomy POD2; medicine was consulted for post-op tachycardia. Tachycardia -resolved -likely 2/2 to pain and anxiety -restarted her home meds -r/o PE and ACS; unlikely -EKG: Sinus tachycardia, no acute ischemic changes noted -CTA neg -b/l lower ext u/s neg -Pharmacologic stress test 09/2017: WNL -Post op CBC stable -C/W pain control with PO pain meds -trop x 1 neg -Cardio consulted; cleared per cardiology for discharge Anxiety/Insomnia -Xanex .5 mg TID PRN -cont Ambian HS -restart psychotropic meds -ativan 0.5 prn if persistent DVT prophylaxis -SCD for now, will speak to surgical team regarding Lovenox on POD 2 Pt for d/c today per primary team. Please follow up Dr. Cheema within 1 week <Cleveland Cheema - Last Filed: 12/16/17 06:53> Objective - Vital Signs/Intake and Output Vital Signs (last 24 hours): Temp Pulse Resp BP Pulse Ox 98.1 F 84 19 111/73 96 12/13/17 09:00 12/13/17 09:00 12/13/17 09:00 12/13/17 09:00 12/13/17 09:00 - Labs Labs: 12/12/17 05:50 12/13/17 05:35 Attending/Attestation - Attestation I have personally seen and examined this patient.: Yes I have fully participated in the care of the patient.: Yes I have reviewed all pertinent clinical information, including history, physical exam and plan: Yes
--- NOTE | 2017-12-13 09:53 | CP.PCM.PN ---
Subjective - Date & Time of Evaluation Date of Evaluation: 11/12/17 Time of Evaluation: 08:30 - Subjective Subjective: NO CHEST PAIN OR SOB Objective - Vital Signs/Intake and Output Vital Signs (last 24 hours): Temp Pulse Resp BP Pulse Ox 98.1 F 84 19 111/73 96 12/13/17 07:42 12/13/17 07:42 12/13/17 07:42 12/13/17 07:42 12/13/17 07:42 - Medications Medications: Current Medications Albuterol (Ventolin Hfa 90 Mcg/Actuation (8 G)) 2 puff IH Q6 PRN PRN Reason: Shortness of Breath Alprazolam (Xanax) 0.5 mg PO TID [facility] Last Admin: 12/13/17 08:29 Dose: 0.5 mg Citalopram Hydrobromide (Celexa) 20 mg PO DAILY [facility] Last Admin: 12/13/17 08:31 Dose: 20 mg Divalproex Sodium (Depakote Dr(*Bid*)) 500 mg PO BID [facility] Last Admin: 12/13/17 08:31 Dose: 500 mg Docusate Sodium (Colace) 100 mg PO DAILY [facility] Last Admin: 12/13/17 08:29 Dose: 100 mg Emollient Ointment (Vaseline Oint) 1 pkt TOP PRN PRN PRN Reason: Dry skin Last Admin: 12/13/17 08:31 Dose: 1 pkt Lactated Ringer's (Lactated Ringer's) 1,000 mls @ 125 mls/hr IV .Q8H [facility] Last Admin: 12/12/17 15:58 Dose: Not Given Mometasone Furoate (Asmanex Twisthaler 110 Mcg) 1 puff INH DAILY PRN PRN Reason: Shortness of Breath Montelukast Sodium (Singulair) 10 mg PO HS [facility] Last Admin: 12/12/17 21:18 Dose: 10 mg Naloxone HCl (Narcan) 0.1 mg IVP Q2M PRN PRN Reason: Opiate reversal Oxycodone/Acetaminophen (Percocet 5/325 Mg Tab) 1 tab PO Q6 PRN PRN Reason: Pain, Mild (1-3) Stop: 12/15/17 11:07 Last Admin: 12/13/17 06:18 Dose: 1 tab Sennosides (Senokot Tab) 8.6 mg PO HS [facility] Last Admin: 12/12/17 21:18 Dose: 8.6 mg Spironolactone (Aldactone) 50 mg PO DAILY [facility] Last Admin: 12/13/17 08:31 Dose: 50 mg Zolpidem Tartrate (Ambien) 5 mg PO HS PRN PRN Reason: Sleep Last Admin: 12/12/17 22:15 Dose: 5 mg - Labs Labs: 12/12/17 05:50 12/13/17 05:35 - Respiratory Exam Respiratory Exam: Clear to Ausculation Bilateral - Cardiovascular Exam Cardiovascular Exam: REGULAR RHYTHM, +S1, +S2 Assessment and Plan - Assessment and Plan (Free Text) Assessment: S/P HYSTERECTOMY 12/11/17 HYPERTENSION HISTORY ANXIETY/DEPRESSION ASTHMA Plan: FOR DISCHARGE TODAY
--- NOTE | 2017-12-25 15:13 | OP ---
PROCEDURE DATE: 12/11/2017 PREOPERATIVE DIAGNOSES: This is a 57-year-old female with multiple adhesions, postmenopausal bleeding,chronic pelvic pain POSTOPERATIVE DIAGNOSES: Same as above PROCEDURE: Robotic hysterectomy, left salpingectomy, lysis of adhesion and cystoscopy. SURGEON: Destiney Ruby MD. DOCUMENTATION ENGINEER: Dr. Rodriguez. Dr. Covington. ANESTHESIOLOGIST: Dr. Yarely Hein TYPE OF ANESTHESIA: General. FINDINGS: 8cm with multiple adhesions, lysis of adhesions performed. COMPLICATION: None ESTIMATED BLOOD LOSS: Approximately 120 cc MANDO USED: UO 300CC IV FLUID: URINE OUTPUT AT THE END OF THE PROCEDURE: ____ mL. SPECIMEN: Cervix, Uterus, left ovaries DESCRIPTION OF PROCEDURE: The patient was informed of the risk factor, benefits and alternative of procedure. Risks have included infection, bleeding, damage to surrounding organs or tissue, complication from anesthesia and probable . She was also made well aware that the chronic pelvic pain can reoccur due to the adhesion. An informed consent was obtained. Once the informed consent was obtained, she was then taken to the operating room and given general anesthesia which was found to be adequate. The patient was then prepped and draped in a dorsal supine position in a standard fashion.A weighted speculum was placed into the vagina. The cervix was then grasped with single-tooth tenaculum, and it was sounded to approximately 18 cm. In that particular instant, the cervix was dilated with Hanks dilators. The VCare apparatus was passed into the uterus for a uterine manipulation during a planned operative procedure. Once that was in place, all instruments were removed from the vagina. Attention was then turned to the abdomen where a supraumbilical incision was made with a knife and Veress needle was applied into the peritoneal cavity, and CO2 gas was insufflated for creating an adequate intraperitoneal bubble. Then the size #8 trocar was followed by the scope into the peritoneal cavity under direct visualization, the bakery assistant ports and the arms 1, 2 and 3 of the robot were passed under direct visualization. The ovaries were identified. There were multiple adhesions. Lysis of adhesions were then performed with a PK. With adequate mobilization, it was then noted that the infundibular ligament on the left side was identified. The broad ligament was then entered over the medial border of the psoas muscle. The defect was then created in the posterior broad ligament over the course of the uterus. Under direct visualization, the infundibular ligament was grasped with a bipolar forceps, dissected and incision with a hot shield. The procedure was then repeated on the other side, so the broad ligament was then entered and a defect was created in the posterior broad ligament. In that particular instant, it was noted to leave her right ovary which looks normal . The pedicles were then dissected using the bipolar forceps, and in thatparticular instant, the uterine vessels were then skeletonized and a PK was utilized. Excellent hemostasis was noted. The vesicouterine peritoneumwas identified and the bladder was mobilized. The VCare was visualized protruding to the underlying vagina. The uterine vessels were then grasped and the bipolar forceps dissected, incision carried down to the VCare as the cardinal ligaments were serially transected with a Bovie cautery. Unilateral hot ellis were utilized. Upon adequate mobilization of the vascular pedicle, the vaginal cuff was entered anteriorly. The groove of the VCare was identified. The cervix was circumferential with careful attention paid to the standing with the groove of the VCare. The specimen was then removed from its attachment and taken out through the vagina. The vaginal cuff was then reapproximated using interrupted [id number] sutures of #1 Vicryl using laparoscopic suturing technique. In that particular instant, the abdomen was then irrigated with normal saline where the vascular pedicle was for hemostasis, which was assured. Closure was noted to be excellent. So in that particular instant, FloSeal was applied where the cuff was as well as Interceed and the ports were then removed and closed. The skin was closed with 4-0 Monocryl and Steri-Strips were applied to the skin. So then attention was then turned to the patient's vagina. In that particular instant, the Bell catheter was then removed. A 70-degree cystoscopy was then performed in which the dome of the bladder was identified and bilateral ureters were patent. Upon completion of the cystoscopy, confirming that the ureteral jets were patent and there was no injury, A Bell catheter was then placed as well as vaginally packing. Instruments and lap count were correct x2. The patient was then taken to recovery room in stable condition and instructed to follow up in the office in 1 week. MTDD
--- NOTE | 2017-12-26 06:07 | OP ---
Copied To: Blas Rodriguez MD Attending MD: Blas Rodriguez MD PROCEDURE DATE: 12/11/2017 I was the dental hygiene administrative assistant in the operation. I help create exposure, I was helpful in obtaining hemostasis, I was helpful in extraction of the specimen and was assisting in closure of the patient. The rest of the operative report would be dictated by Dr. Destiney Ruby. That concludes my role in the care of the patient. Blas Rodriguez MD
== END 2017-12-13 14:34 | disposition home or self-care (01) ==
LOC: H.OPSURG 07:25 → H.MEDSURG1 12:17
PROVIDERS: ADMIT Obstetrics & Gynecology; ATTEND Obstetrics & Gynecology
DX: N88.8 Other specified noninflammatory disorders of cervix uteri (principal); N83.292 Other ovarian cyst, left side; N83.312 Acquired atrophy of left ovary; N73.6 Female pelvic peritoneal adhesions (postinfective); N95.0 Postmenopausal bleeding; R00.0 Tachycardia, unspecified; G89.29 Other chronic pain; M41.9 Scoliosis, unspecified; J45.909 Unspecified asthma, uncomplicated; M81.0 Age-related osteoporosis without current pathological fracture; I10 Essential (primary) hypertension; H54.8 Legal blindness, as defined in USA; E78.00 Pure hypercholesterolemia, unspecified; F20.9 Schizophrenia, unspecified; F41.9 Anxiety disorder, unspecified
CPT/HCPCS: 36415; 58570; 71275; 80048; 80164; 83735; 84100; 84443; 84484; 85025; 85027; 86850; 86900; 88305; 93005; 93970; C1729; C2615; G0378; J0131; J0330; J0690; J0694; J1100; J1170; J1885; J2001; J2060; J2250; J2704; J2710; J3010; J7030; J7120; Q9967; S2900

== ENCOUNTER 2018-04-23 13:47 | Observation (INO) | payer MEDICARE, MEDICAID ==
[2018-04-23 13:48] VITALS: BMI 50.3
[2018-04-23] MEDS ORDERED: Albuterol-Ipratrop 3 mg / 0.5 (3 ml) UD INH STA ×4 (15:36→18:29)
[2018-04-23] MEDS ORDERED: Albuterol-Ipratrop 3 mg / 0.5 (3 ml) UD ONE ×2 (15:49→16:21)
--- NOTE | 2018-04-23 15:57 | RAD ---
Date of service: 04/23/2018 HISTORY: Evaluate for pneumonia COMPARISON: 12/06/2017. TECHNIQUE: Chest PA and lateral FINDINGS: LINES AND TUBES: None. LUNG AND PLEURA: The lungs are well inflated and clear. No pleural effusion or pneumothorax. HEART AND MEDIASTINUM: The heart is not enlarged. No aortic atherosclerotic calcification present. The hilar and mediastinal contours are within normal limits. SKELETAL STRUCTURES: The bony structures are within normal limits for the patient's age. VISUALIZED UPPER ABDOMEN: Normal. OTHER FINDINGS: None. IMPRESSION: No active pulmonary disease.
[2018-04-23 16:13] LABS: BASO % 0.7 % (0.0-2.0); EOS # 0.1 K/uL (0.0-0.7); EOS % 2.2 % (0.0-4.0); HEMOGLOBIN 13.8 g/dL (12.0-16.0); LYMPH # 1.9 K/uL (1.0-4.3); LYMPH % 39.7 % (20.0-40.0); MEAN CELL VOLUME 86.6 fl (81.0-99.0); MEAN CORPUSCULAR HEMOGLOBIN 28.5 pg (27.0-31.0); MEAN CORPUSCULAR HGB CONC 32.9 g/dL (33.0-37.0); MEAN PLATELET VOLUME 9.5 fl (7.2-11.7); MONO # 0.4 K/uL (0.0-0.8); MONO % 8.4 % (0.0-10.0); NEUT # 2.4 K/uL (1.8-7.0); NRBC % 0.1 % (0.0-0.0); RBC 4.86 Mil/uL (3.80-5.20); RED CELL DISTRIBUTION WIDTH 13.6 % (11.5-14.5); WHITE BLOOD COUNT 4.9 K/uL (4.8-10.8)
[2018-04-23 16:22] LABS: ALB/GLOB RATIO 1.1 (1.0-2.1); ALBUMIN 3.9 g/dL (3.5-5.0); ALT/SGPT 38 U/L (9-52); AST/SGOT 30 U/L (14-36); BLOOD UREA NITROGEN 19 mg/dl (7-17); CALCIUM 9.6 mg/dL (8.4-10.2); GFR NON-AFRICAN AMERICAN > 60
[2018-04-23] MEDS ORDERED: Promethazine/Cod 6.25mg-10mg/5ml Syr UD PO STA (18:38)
[2018-04-23] MEDS ORDERED: Promethazine/Cod 6.25mg-10mg/5ml Syr UD ONE (18:54)
--- NOTE | 2018-04-23 19:48 | ED PDOC ---
HPI: SOB/CHF/COPD Time Seen by Provider: 04/23/18 14:52 Chief Complaint (Nursing): Shortness Of Breath Chief Complaint (Provider): Wheezing, SOB History Per: Patient History/Exam Limitations: no limitations Onset/Duration Of Symptoms: Days Current Symptoms Are (Timing): Still Present Quality: Sharp (With cough ) Associated Symptoms: Chest Pain (When coughing ). denies: Fever, Chills, Sweating, Bloody Cough, Productive Cough, Heart Racing, Ankle/Leg Swelling, Dizziness, Light-headedness, Anxiety, Tingling In Hands Or Face Additional Complaint(s): 57 yo female with history of asthma, COPD, seizure disorder and HTN presents for evaluation of chest pain, wheezing and coughing. PT states she was told to come to ER by Dr. House. Pt reports chest pain central and sharp, only when coughing. Pt has used her albuterol nebulizer today. No fever/chills. Past Medical History Reviewed: Historical Data, Nursing Documentation, Vital Signs Vital Signs: Last Vital Signs Temp 98.4 F 04/23/18 19:44 Pulse 91 H 04/23/18 19:44 Resp 22 04/23/18 19:44 BP 116/69 04/23/18 19:44 Pulse Ox 94 L 04/23/18 19:44 - Medical History PMH: Anxiety, Arthritis (RA), Asthma, Back Problems (Chronic), Bipolar Disorder, COPD, Depression, HTN, Hypercholesterolemia, Osteoporosis, Peripheral Edema, Seizures Denies: CHF, Diabetes, Hepatitis, HIV, Hypothyroidism, Chronic Kidney Dis ease, Rheumatoid Arthritis - Surgical History Surgical History: - Family History Family History: States: Unknown Family Hx - Immunization History Hx Tetanus Toxoid Vaccination: No Hx Influenza Vaccination: Yes Hx Pneumococcal Vaccination: No - Home Medications Home Medications: Ambulatory Orders Medication Instructions Recorded Singulair 10 mg PO HS 05/24/13 Depakote 500 mg PO BID 07/27/13 Citalopram Hydrobromide [Celexa] 20 mg PO DAILY 09/07/15 Albuterol HFA [Ventolin HFA 90 1 - 2 puff IH Q6 PRN #1 inhaler 11/13/16 mcg/actuation (8 g)] Alprazolam [Xanax] 0.5 mg PO TID 02/12/17 Furosemide 40 mg PO DAILY 02/12/17 Multivitamin [Daily Smita] 1 tab PO DAILY 02/12/17 Spironolactone 50 mg PO DAILY 02/12/17 Zolpidem [Ambien] 10 mg PO HS 12/09/17 Pantoprazole Sodium [Protonix] 40 mg PO DAILY #15 ect 03/18/18 - Allergies Allergies/Adverse Reactions: Allergies Allergy/AdvReac Type Severity Reaction Status Date / Time advair Allergy Intermediate SWELLING Uncoded 04/23/18 13:53 spiriva Allergy Intermediate SWELLING Uncoded 04/23/18 13:53 Review of Systems ROS Statement: Except As Marked, All Systems Reviewed And Found Negative Constitutional: Negative for: Fever, Chills Cardiovascular: Positive for: Chest Pain. Negative for: Palpitations, Orthopnea Respiratory: Positive for: Cough, Shortness of Breath. Negative for: SOB with Exertion, Pleuritic Pain, Sputum Gastrointestinal: Negative for: Nausea, Vomiting, Abdominal Pain, Diarrhea Physical Exam - Reviewed Nursing Documentation Reviewed: Yes Vital Signs Reviewed: Yes - Physical Exam Appears: Positive for: Well, Non-toxic, No Acute Distress Head Exam: Positive for: ATRAUMATIC, NORMAL INSPECTION, NORMOCEPHALIC Skin: Positive for: Normal Color, Warm, DRY Eye Exam: Positive for: Normal appearance ENT: Positive for: Normal ENT Inspection Neck: Positive for: Normal, Painless ROM Cardiovascular/Chest: Positive for: Regular Rate, Rhythm Respiratory: Positive for: Wheezing. Negative for: Accessory Muscle Use, Respiratory Distress Back: Positive for: Normal Inspection Extremity: Positive for: Normal ROM Neurologic/Psych: Positive for: Alert, Oriented - Laboratory Results Result Diagrams: 04/24/18 05:52 04/24/18 05:52 - ECG O2 Sat by Pulse Oximetry: 94 Pulse Ox Interpretation: Abnormal Medical Decision Making Medical Decision Makin - Continued wheezing, Oxygen saturation 89-90% on RA. Discussed Observation with Dr. Núñez. Disposition - Clinical Impression Clinical Impression: Hypoxia, Asthma exacerbation - Patient ED Disposition Is Patient to be Admitted: Yes - Disposition Disposition Time: 20:19 Condition: GOOD
[2018-04-23] MEDS ORDERED: Magnesium Sulfate 1 gm in D5W 1 GM/100 ML BAG IVPB ONE (19:50)
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
[2018-04-23] MEDS ORDERED: BUDESONIDE INH PRN (21:03)
[2018-04-23] MEDS ORDERED: Albuterol-Ipratrop 3 mg / 0.5 (3 ml) UD INH PRN (21:14)
[2018-04-23] MEDS ORDERED: methylPREDNISolone 60 MG in Sodium Chloride 0.9% 50 ML IV SCH (21:15)
[2018-04-23] MEDS: guaiFENesin-DM 600-30 mg ER Tab PO SCH (21:38)
[2018-04-23] MEDS ORDERED: Albuterol-Ipratrop 3 mg / 0.5 (3 ml) UD INH SCH (22:00)
[2018-04-23] MEDS: Albuterol-Ipratrop 3 mg / 0.5 (3 ml) UD INH SCH (23:14)
[2018-04-24] MEDS: Albuterol-Ipratrop 3 mg / 0.5 (3 ml) UD INH SCH ×5 (04:07→19:32)
[2018-04-24] MEDS ORDERED: Pneumococcal 23-Valent Vaccine IM ONE (05:46)
[2018-04-24 06:18] LABS: BASO % 0.5 % (0.0-2.0); HEMOGLOBIN 13.3 g/dL (12.0-16.0); LYMPH # 0.5 K/uL (1.0-4.3); LYMPH % 6.6 % (20.0-40.0); MEAN CELL VOLUME 87.2 fl (81.0-99.0); MEAN CORPUSCULAR HEMOGLOBIN 28.6 pg (27.0-31.0); MEAN CORPUSCULAR HGB CONC 32.8 g/dL (33.0-37.0); MEAN PLATELET VOLUME 9.2 fl (7.2-11.7); MONO # 0.2 K/uL (0.0-0.8); MONO % 2.4 % (0.0-10.0); NEUT # 6.7 K/uL (1.8-7.0); NEUT % 90.5 % (50.0-75.0); PLATELET COUNT 239 K/uL (130-400); RBC 4.65 Mil/uL (3.80-5.20); WHITE BLOOD COUNT 7.4 K/uL (4.8-10.8)
[2018-04-24 06:53] LABS: ALB/GLOB RATIO 1.1 (1.0-2.1); ALBUMIN 3.9 g/dL (3.5-5.0); ALT/SGPT 29 U/L (9-52); AST/SGOT 28 U/L (14-36); BLOOD UREA NITROGEN 19 mg/dl (7-17); CALCIUM 9.5 mg/dL (8.4-10.2); GFR NON-AFRICAN AMERICAN > 60
[2018-04-24 08:31] LABS: BANDS 3 % (0-2); LYMPHOCYTE 6 % (20-50); MONOCYTE 1 % (0-10); NEUTROPHIL 89 % (42-75); PLATELET ESTIMATE NORMAL (NORMAL); REACTIVE LYMPHOCYTES 1 % (0-0); TOTAL CELLS COUNTED 100
[2018-04-24] MEDS: guaiFENesin-DM 600-30 mg ER Tab PO SCH ×2 (08:31→18:15)
[2018-04-24] MEDS: Pantoprazole 40 mg EC Tab PO SCH (08:31)
[2018-04-24 08:32] LABS: LARGE PLATELETS PRESENT
[2018-04-24] MEDS: Enoxaparin 40 mg Syringe SC SCH (08:32)
[2018-04-24] MEDS: Divalproex 500 mg DR(BID formulation) PO SCH ×2 (08:32→18:15)
[2018-04-24] MEDS ORDERED: Sodium Chloride 3% for Inhalation 4 ML VIAL.NEB IH PRN (08:33)
--- NOTE | 2018-04-24 09:31 | CP.PCM.PN ---
<Clifton Redmond - Last Filed: 04/24/18 15:29> Subjective - Date & Time of Evaluation Date of Evaluation: 04/24/18 Time of Evaluation: 09:28 - Subjective Subjective: 57F seen and evaluated at bedside. Resting comfortably, eating breakfast. States she feels mild improvement in regards to shortness of breath and cough since admission. States she still feels tight and that she is not getting full breathing potential. States that her cough is still dry and that she does have chest/full upper body pain when she coughs. Denies N/V/F/C today and has no other acute complaints. Objective - Vital Signs/Intake and Output Vital Signs (last 24 hours): Temp Pulse Resp BP Pulse Ox 97.8 F 104 H 18 109/67 95 04/24/18 08:15 04/24/18 08:15 04/24/18 08:15 04/24/18 08:15 04/24/18 08:15 - Medications Medications: Current Medications Acetylcysteine (Acetylcysteine 20%) 2 ml INH RBID GILL Albuterol/Ipratropium (Duoneb 3 Mg/0.5 Mg (3 Ml) Ud) 3 ml INH RQ4 [facility] Last Admin: 04/24/18 07:33 Dose: 3 ml Albuterol/Ipratropium (Duoneb 3 Mg/0.5 Mg (3 Ml) Ud) 3 ml INH Q2 PRN PRN Reason: Wheezing Alprazolam (Xanax) 0.5 mg PO TID [facility] Last Admin: 04/24/18 09:10 Dose: 0.5 mg Atorvastatin Calcium (Lipitor) 20 mg PO DAILY [facility] Last Admin: 04/24/18 08:32 Dose: 20 mg Benzocaine/Menthol (Cepacol Sore Throat) 1 jaki PO Q3 PRN PRN Reason: Sore Throat Citalopram Hydrobromide (Celexa) 20 mg PO DAILY [facility] Last Admin: 04/24/18 08:30 Dose: 20 mg Divalproex Sodium (Depakote Dr(*Bid*)) 500 mg PO BID [facility] Last Admin: 04/24/18 08:32 Dose: 500 mg Enoxaparin Sodium (Lovenox) 40 mg SC DAILY [facility]; Protocol Last Admin: 04/24/18 08:32 Dose: 40 mg Guaifenesin/Dextromethorphan (Mucinex-Dm 600-30 Mg) 1 tab PO BID [facility] Last Admin: 04/24/18 08:31 Dose: 1 tab Home Med (Budesonide [Pulmicort Flexhaler]) 1 puff INH BID PRN PRN Reason: Shortness of Breath Methylprednisolone (Solu-Medrol) 60 mg IV Q8H [facility] Last Admin: 04/24/18 06:37 Dose: 60 mg Montelukast Sodium (Singulair) 10 mg PO DAILY [facility] Last Admin: 04/24/18 08:33 Dose: 10 mg Pantoprazole Sodium (Protonix Ec Tab) 40 mg PO DAILY [facility] Last Admin: 04/24/18 08:31 Dose: 40 mg Spironolactone (Aldactone) 50 mg PO DAILY [facility] Last Admin: 04/24/18 08:30 Dose: 50 mg - Labs Labs: 04/24/18 05:52 04/24/18 05:52 - Constitutional Appears: Non-toxic - Head Exam Head Exam: ATRAUMATIC, NORMAL INSPECTION - Eye Exam Eye Exam: EOMI, PERRL - ENT Exam ENT Exam: Mucous Membranes Moist - Neck Exam Neck Exam: Full ROM - Respiratory Exam Respiratory Exam: Decreased Breath Sounds, Prolonged Expiratory Phase, Rhonchi (improved) - Cardiovascular Exam Cardiovascular Exam: REGULAR RHYTHM, +S1, +S2 - GI/Abdominal Exam GI & Abdominal Exam: Soft, Normal Bowel Sounds. absent: Tenderness - Extremities Exam Extremities Exam: Normal Capillary Refill. absent: Calf Tenderness, Pedal Edema - Neurological Exam Neurological Exam: Alert, Awake, Oriented x3 - Psychiatric Exam Psychiatric exam: Normal Affect, Normal Mood - Skin Skin Exam: Intact, Normal Color Assessment and Plan - Assessment and Plan (Free Text) Assessment: 57F with PMHx of chronic asthma, COPD with Asthma exacerbation. Plan: Asthma exacerbation - afebrile, VSS - duonebs GILL Q4, Q2 PRN - solumedrol 60 mg IV Q8 [facility] - CXR: negative for active lung disease - Oxygen saturation 89-90% on RA, 95% NA at 4 lpm - continue O2 2L - mucinex prn for cough - f/u ABG - Pulmonology consult - recs appreciated, f/u - continue home meds Hyperlipidemia - continue home meds Bipolar disorder/Depression - stable, denies SI/HI - continue home meds Prophylaxis - DVT: lovenox <Roopa Hood - Last Filed: 04/26/18 00:30> Objective - Vital Signs/Intake and Output Vital Signs (last 24 hours): Temp Pulse Resp BP Pulse Ox 98.5 F 92 H 20 123/73 94 L 04/25/18 12:04 04/25/18 12:04 04/25/18 12:04 04/25/18 12:04 04/25/18 12:04 - Labs Labs: 04/25/18 07:23 04/25/18 07:23 Attending/Attestation - Attestation I have personally seen and examined this patient.: Yes I have fully participated in the care of the patient.: Yes I have reviewed all pertinent clinical information, including history, physical exam and plan: Yes Notes (Text): 04/26/18 00:29 agree with findings and plan as above continue to be tight cont bronchodilators and steroids
[2018-04-24] MEDS: Multivitamin With Minerals Tab PO SCH (10:21)
[2018-04-24 11:18] LABS: ABG ALLEN TEST YES; ARTERIAL BLOOD GAS HCO3 24.5 mmol/L (21-28); ARTERIAL BLOOD GAS HEMOGLOBIN 13.5 g/dL (11.7-17.4); ARTERIAL BLOOD GAS O2 CAPACITY 18.5 mL/dL (16-24); ARTERIAL BLOOD GAS O2 CONTENT 18.3 ML/dL (15-23); ARTERIAL BLOOD GAS O2 SAT 98.8 % (95-98); ARTERIAL BLOOD GAS PCO2 39 mm/Hg (35-45); ARTERIAL BLOOD GAS PO2 103 mm/Hg (80-100); ARTERIAL BLOOD GAS TCO2 25.4 mmol/L (22-28)
--- NOTE | 2018-04-24 12:59 | CON ---
DATE: 04/24/2018 HISTORY OF PRESENT ILLNESS: Ms. Maravilla is a 57-year-old female who was referred for pulmonary evaluation by Dr. Núñez. She was admitted because of shortness of breath which progressively has worsened over the past three days associated with dry cough, chest tightness, exercise intolerance. She also has had fever with chills and URI symptoms. She came to the emergency room because of the above and was given IV steroids, aerosolized bronchodilators and oxygen, still continues to complain of shortness of breath and chest tightness with a dry cough. PAST MEDICAL HISTORY: Remarkable for asthma, hypertension, hyperlipidemia, bipolar disorder, chronic back pain. FAMILY HISTORY: Remarkable for diabetes mellitus and heart problems in father and also mom who has asthma. SOCIAL HISTORY: She does not smoke or drink and lives at home alone. Does not use drugs. REVIEW OF SYSTEMS: Remarkable for occasional shortness of breath and exercise intolerance and anxiety. PHYSICAL EXAMINATION: GENERAL: The patient is alert, oriented, still has audible wheezing, complained of some chest tightness. VITAL SIGNS: Blood pressure 116/69 with a pulse of 91, respiratory rate 22. She is afebrile. O2 sat 94% on nasal cannula oxygen. SKIN: Fair turgor. HEENT: Pupils equal and reactive to light and accommodation. Mouth shows fair hygiene with mucus engorgement of pharynx. LUNGS: Bilateral coarse rales and wheezing with dullness at the bases. HEART: Regular. No murmurs or gallops appreciated. ABDOMEN: Soft, nontender. No organomegaly. EXTREMITIES: No edema or cyanosis. CENTRAL NERVOUS SYSTEM: Exam grossly intact. LABORATORY DATA: WBC 4.9, hemoglobin 13.8, platelet count 254,000. Sodium 141, potassium 4.1, BUN 19, creatinine 0.9. Troponin less than 0.012. DIAGNOSTIC DATA: Chest x-ray shows no acute cardiopulmonary pathology. EKG normal sinus rhythm, possible left atrial enlargement. IMPRESSION: Acute exacerbation of asthma, probably secondary to upper respiratory tract infection; history of bipolar disorder; history of hyperlipidemia. PLAN: The plan is intravenous steroids, aerosolized bronchodilators, oxygen therapy. We will obtain sputum for Gram stain and cultures. Would add mucolytics to help expectorate sputum. Further therapy will depend on findings. Jeb Torres MD [facility] # [id number]
[2018-04-24] MEDS: Benzocaine/Menthol (Cepacol) Lozenge PO PRN ×2 (18:17→21:43)
[2018-04-24] MEDS: Acetylcysteine 20% Inhal Soln (4ml) INH SCH (19:40)
--- NOTE | 2018-04-24 23:45 | CARD ---
APPROVED REPORT Date of service: 04/23/2018 EKG Measurement Heart [id number] <Conclusion> Normal sinus rhythm Possible Left atrial enlargement Borderline ECG
[2018-04-25] MEDS: Albuterol-Ipratrop 3 mg / 0.5 (3 ml) UD INH SCH ×4 (00:58→10:59)
[2018-04-25] MEDS: Benzocaine/Menthol (Cepacol) Lozenge PO PRN ×2 (06:03→09:30)
[2018-04-25] MEDS: Acetylcysteine 20% Inhal Soln (4ml) INH SCH (07:25)
[2018-04-25 07:34] VITALS: RESP 20
[2018-04-25 08:11] LABS: HEMOGLOBIN 12.7 g/dL (12.0-16.0); MEAN CELL VOLUME 87.7 fl (81.0-99.0); MEAN CORPUSCULAR HEMOGLOBIN 28.1 pg (27.0-31.0); MEAN CORPUSCULAR HGB CONC 32.1 g/dL (33.0-37.0); RBC 4.5 Mil/uL (3.80-5.20); WHITE BLOOD COUNT 16.1 K/uL (4.8-10.8)
[2018-04-25] MEDS ORDERED: MethylPREDNISolone 40 mg Vial IV SCH (08:15)
[2018-04-25 08:25] LABS: BLOOD UREA NITROGEN 26 mg/dl (7-17); CALCIUM 9.1 mg/dL (8.4-10.2); GFR NON-AFRICAN AMERICAN > 60
[2018-04-25] MEDS: guaiFENesin-DM 600-30 mg ER Tab PO SCH (09:23)
[2018-04-25] MEDS: Divalproex 500 mg DR(BID formulation) PO SCH (09:23)
[2018-04-25] MEDS: Pantoprazole 40 mg EC Tab PO SCH (09:23)
[2018-04-25] MEDS: Enoxaparin 40 mg Syringe SC SCH (09:23)
[2018-04-25] MEDS: Multivitamin With Minerals Tab PO SCH (09:23)
--- NOTE | 2018-04-25 11:05 | CP.PCM.DIS ---
Provider - Provider Date of Admission: 04/23/18 20:30 Attending physician: Tyler Núñez Consults: 04/23/18 21:08 Pulmonology Consult Stat Comment: Consulting Provider: Jeb Torres I Consulting Physician: Jeb Torres I Reason for Consult: asthma exacerbation Time Spent in preparation of Discharge (in minutes): 30 Diagnosis - Discharge Diagnosis (1) Asthma exacerbation Status: Acute Hospital Course - Lab Results Lab Results: Most Recent Lab Values WBC 16.1 K/uL (4.8-10.8) H D 04/25/18 07:23 RBC 4.50 Mil/uL (3.80-5.20) 04/25/18 07:23 Hgb 12.7 g/dL (12.0-16.0) 04/25/18 07:23 Hct 39.5 % (34.0-47.0) 04/25/18 07:23 MCV 87.7 fl (81.0-99.0) 04/25/18 07:23 MCH 28.1 pg (27.0-31.0) 04/25/18 07:23 MCHC 32.1 g/dL (33.0-37.0) L 04/25/18 07:23 RDW 14.0 % (11.5-14.5) 04/25/18 07:23 Plt Count 245 K/uL (130-400) 04/25/18 07:23 MPV 9.2 fl (7.2-11.7) 04/24/18 05:52 Neut % (Auto) 90.5 % (50.0-75.0) H 04/24/18 05:52 Lymph % (Auto) 6.6 % (20.0-40.0) L 04/24/18 05:52 [place] % (Auto) 2.4 % (0.0-10.0) 04/24/18 05:52 Eos % (Auto) 0.0 % (0.0-4.0) 04/24/18 05:52 Baso % (Auto) 0.5 % (0.0-2.0) 04/24/18 05:52 Neut # (Auto) 6.7 K/uL (1.8-7.0) 04/24/18 05:52 Lymph # (Auto) 0.5 K/uL (1.0-4.3) L 04/24/18 05:52 [place] # (Auto) 0.2 K/uL (0.0-0.8) 04/24/18 05:52 Eos # (Auto) 0.0 K/uL (0.0-0.7) 04/24/18 05:52 Baso # (Auto) 0.0 K/uL (0.0-0.2) 04/24/18 05:52 Neutrophils % (Manual) 89 % (42-75) H 04/24/18 05:52 Band Neutrophils % 3 % (0-2) H 04/24/18 05:52 Lymphocytes % (Manual) 6 % (20-50) L 04/24/18 05:52 Reactive Lymphs % 1 % (0-0) H 04/24/18 05:52 Monocytes % (Manual) 1 % (0-10) 04/24/18 05:52 Platelet Estimate Normal (NORMAL) 04/24/18 05:52 Large Platelets Present 04/24/18 05:52 RBC Morphology Normal (NORMAL) 04/24/18 05:52 pCO2 39 mm/Hg (35-45) 04/24/18 11:14 pO2 103 mm/Hg (80-100) H 04/24/18 11:14 HCO3 24.5 mmol/L (21-28) 04/24/18 11:14 ABG pH 7.40 (7.35-7.45) 04/24/18 11:14 ABG Total CO2 25.4 mmol/L (22-28) 04/24/18 11:14 ABG O2 Saturation 98.8 % (95-98) H 04/24/18 11:14 ABG O2 Content 18.3 ML/dL (15-23) 04/24/18 11:14 ABG Base Excess -0.5 mmol/L (-2.0-3.0) 04/24/18 11:14 ABG Hemoglobin 13.5 g/dL (11.7-17.4) 04/24/18 11:14 ABG Carboxyhemoglobin 1.6 % (0.5-1.5) H 04/24/18 11:14 POC ABG HHb (Measured) 1.2 % (0.0-5.0) 04/24/18 11:14 ABG Methemoglobin 1.3 % (0.0-3.0) 04/24/18 11:14 ABG O2 Capacity 18.5 mL/dL (16-24) 04/24/18 11:14 Michael Test Yes 04/24/18 11:14 A-a O2 Difference 48.0 mm/Hg 04/24/18 11:14 Hgb O2 Saturation 95.9 % (95.0-98.0) 04/24/18 11:14 FiO2 28.0 % 04/24/18 11:14 Sodium 139 mmol/l (132-148) 04/25/18 07:23 Potassium 4.6 MMOL/L (3.6-5.0) 04/25/18 07:23 Chloride 103 mmol/L (98-107) 04/25/18 07:23 Carbon Dioxide 27 mmol/L (22-30) 04/25/18 07:23 Anion Gap 14 (10-20) 04/25/18 07:23 BUN 26 mg/dl (7-17) H 04/25/18 07:23 Creatinine 0.8 mg/dl (0.7-1.2) 04/25/18 07:23 Est GFR ( Amer) > 60 04/25/18 07:23 Est GFR (Non-Af Amer) > 60 04/25/18 07:23 Random Glucose 149 mg/dL (65-105) H 04/25/18 07:23 Calcium 9.1 mg/dL (8.4-10.2) 04/25/18 07:23 Magnesium 2.2 MG/DL (1.6-2.3) 04/23/18 20:10 Total Bilirubin 0.2 mg/dl (0.2-1.3) 04/24/18 05:52 AST 28 U/L (14-36) 04/24/18 05:52 ALT 29 U/L (9-52) 04/24/18 05:52 Alkaline Phosphatase 94 U/L (38-126) 04/24/18 05:52 Troponin I < 0.0120 ng/mL (0.00-0.120) 04/23/18 16:07 Total Protein 7.3 G/DL (6.3-8.2) 04/24/18 05:52 Albumin 3.9 g/dL (3.5-5.0) 04/24/18 05:52 Globulin 3.4 gm/dL (2.2-3.9) 04/24/18 05:52 Albumin/Globulin Ratio 1.1 (1.0-2.1) 04/24/18 05:52 - Hospital Course Hospital Course: 57 year old female with PMHx of chronic asthma, COPD, hypertension, hypercholesterolemia, and bipolar disorder presented to ED complaining of worsening shortness of breath over 3 days. Patient also states wet cough since last week but unable to produce sputum. Associated subjective fever and chills but never toke her temperature. Patient also stated chest pain when coughing. While in house she was given IV solumedrol 60 mg Q8 and duonebs GILL Q4 and Q2 PRN. Her ABG was normal and O2 saturation was ~[address] Torres pulmonology was consulted and agreed with treatment. She sees a speck dyer but does not know the name and has an appointment with Dr. House on May.05 where she will be able to schedule a f/u appointment with pulmonology. She is stable for discharge with prednisone daily 30 mg, singulair 10 mg, albuterol inhaler, and breo ellipta inhaler 100 mcg daily as she felt sick after taking advair. Prescription for zithromax sent to pharmacy to take for 7 days as prescribed. - Date & Time of H&P Date of H&P: 04/25/18 Time of H&P: 10:53 Discharge Exam - Head Exam Head Exam: ATRAUMATIC, NORMAL INSPECTION - Eye Exam Eye Exam: EOMI, PERRL - ENT Exam ENT Exam: Mucous Membranes Dry - Neck Exam Neck exam: Full Rom, Normal Inspection - Respiratory Exam Respiratory Exam: Prolonged Expiratory Phase, Rhonchi (chronic). absent: Wheezes - Cardiovascular Exam Cardiovascular Exam: REGULAR RHYTHM, +S1, +S2 - GI/Abdominal Exam GI & Abdominal Exam: Normal Bowel Sounds, Soft - Extremities Exam Extremities exam: normal capillary refill, pedal pulses present - Back Exam Back exam: NORMAL INSPECTION - Neurological Exam Neurological exam: Alert, Oriented x3 - Psychiatric Exam Psychiatric exam: Normal Affect, Normal Mood - Skin Skin Exam: Normal Color, Warm Discharge Plan - Discharge Medications Prescriptions: Azithromycin [Z-William] 250 mg PO ASDIR #6 tab Fluticasone/Vilanterol 100/25 [Breo Ellipta 100-25 MCG INH] 1 puff IH DAILY #1 puff Prednisone [Deltasone] 20 mg PO DAILY #7 tablet Prednisone 10 mg PO DAILY #14 tab.ds.pk - Follow Up Plan Condition: GOOD Disposition: HOME/ ROUTINE Instructions: Asthma (DC) Clinical Quality Measures - Date & Time of Discharge Summary Date of Discharge Summary: 04/25/18 Time of Discharge Summary: 10:53
[2018-04-25 12:05] VITALS: BP 123/73; PULSE 92; TEMP 98.5; O2SAT 94
== END 2018-04-25 14:23 | disposition home or self-care (01) ==
LOC: H.ER 13:47 → H.ERHOLD 20:30 → H.TEL 22:52
PROVIDERS: ADMIT Internal Medicine; ATTEND Internal Medicine
DX: J45.901 Unspecified asthma with (acute) exacerbation (principal); F41.9 Anxiety disorder, unspecified; J44.9 Chronic obstructive pulmonary disease, unspecified; F32.9 Major depressive disorder, single episode, unspecified; E78.00 Pure hypercholesterolemia, unspecified; M81.0 Age-related osteoporosis without current pathological fracture; G40.909 Epilepsy, unspecified, not intractable, without status epilepticus; E66.9 Obesity, unspecified; Z68.42 Body mass index [BMI] 45.0-49.9, adult; F31.9 Bipolar disorder, unspecified; H54.8 Legal blindness, as defined in USA; I10 Essential (primary) hypertension; J06.9 Acute upper respiratory infection, unspecified; M06.9 Rheumatoid arthritis, unspecified; R09.02 Hypoxemia; Z83.3 Family history of diabetes mellitus; Z90.710 Acquired absence of both cervix and uterus; Z91.410 Personal history of adult physical and sexual abuse; Z99.81 Dependence on supplemental oxygen
CPT/HCPCS: 36415; 71046; 80048; 80053; 82803; 83735; 84484; 85025; 85027; 93005; 94640; 99285; G0378; J1650; J2920; J2930; J3475